=== PATIENT | female | born 1960 | race Caucasian/White ===

== ENCOUNTER 2021-08-05 11:00 | Observation (INO) ==
[2021-08-05 11:20] VITALS: TEMP 98.2; O2SAT 99
[2021-08-05 12:18] VITALS: PULSE 62
[2021-08-05] MEDS ORDERED: Ondansetron 4 MG/2 ML VIAL IVP ONE (13:09)
[2021-08-05 13:11] LABS: Basophils # 0.1 K/mcL (0.0-0.2); Basophils % 0.9 %; Eosinophils # 0.4 K/mcL (0.0-0.6); Eosinophils % 3.1 %; Hematocrit 37.4 % (35.3-44.9); Hemoglobin 12.8 g/dL (11.5-15.4); Immature Granulocytes % 0.3 % (0-4); Lymphocytes # 4.7 K/mcL (0.6-4.6); Lymphocytes % 40.8 %; Mean Corpuscular HGB Conc 34.2 g/dL (31.6-35.5); Mean Corpuscular Hemoglobin 32.7 pg (28.0-33.3); Mean Corpuscular Volume 95.4 fL (83.0-100.0); Mean Platelet Volume 9.7 fL (9.4-12.4); Monocytes # 0.7 K/mcL (0.0-1.3); Monocytes % 6.4 %; Neutrophils # 5.6 K/mcL (1.6-8.9); Platelet Count 326 K/mcL (140-400); Red Blood Count 3.92 M/mcL (3.82-4.97); Red Cell Distribution Width 13.7 % (11.5-14.5); Segmented Neutrophils % 48.5 %; White Blood Count 11.6 K/mcL (4.3-11.1)
[2021-08-05 13:38] LABS: BUN/Creatinine Ratio 9 (6-26); Blood Urea Nitrogen 11 mg/dL (6-20); Calcium 9.4 mg/dL (8.6-10.3); Carbon Dioxide 32 mEq/L (23-29); Chloride 104 mEq/L (98-107); Glucose 115 mg/dL (70-105); Osmolality,Calculated 290 (280-300); Potassium 3.8 mEq/L (3.5-5.1); Sodium 140 mEq/L (136-145); Troponin I < 0.03 ng/mL (< 0.04); eGFR For African Americans 55 (> 60); eGFR For Non-African Americans 46 (> 60)
[2021-08-05] MEDS ORDERED: Naloxone 0.4 MG/ML INJ IVP PRN (15:06)
[2021-08-05 15:08] LABS: Influenza A PCR Negative (Negative); Influenza B PCR Negative (Negative); Resp. Syncytial Virus PCR Negative (Negative)
[2021-08-05 15:13] LABS: SARS-CoV-2 by PCR (In House) Negative (Negative)
[2021-08-05 15:40] VITALS: BP 132/70
[2021-08-05] MEDS ORDERED: Ondansetron ODT 4 MG TAB.RAPDIS SL PRN (16:57)
[2021-08-05] MEDS ORDERED: Albuterol 2.5 MG/3 ML NEBULIZER IH PRN (16:57)
[2021-08-05] MEDS ORDERED: Fluticasone Propionate Nasal 50 MCG/SPRAY BOTTLE NS PRN (16:57)
[2021-08-05] MEDS ORDERED: Loratadine 10 MG TABLET PO PRN (16:57)
[2021-08-05] MEDS ORDERED: Nitroglycerin 0.4 MG TAB.SUBL SL PRN (16:57)
[2021-08-05] MEDS ORDERED: Ranolazine 500 MG TAB.ER.12H PO SCH (21:00)
[2021-08-05] MEDS ORDERED: traZODone 50 MG TABLET PO SCH (21:00)
[2021-08-05] MEDS ORDERED: ALPRAZolam 1 MG TABLET PO SCH (21:00)
[2021-08-05] MEDS ORDERED: Metoprolol XL (24 HR) Succ 25 MG TAB.ER.24H PO SCH (21:00)
[2021-08-05] MEDS ORDERED: *HR* Ticagrelor 90 MG TABLET PO SCH (21:00)
[2021-08-06] MEDS ORDERED: Aspirin Enteric Coated 81 MG Tablet PO SCH (09:00)
== END 2021-08-05 18:15 | disposition left against medical advice (07) ==
LOC: EMEROOARM 11:00 → 3BNU 11:00
PROVIDERS: ADMIT Pharmacist; ATTEND Pharmacist